=== PATIENT | female | born 1945 | race Caucasian/White ===

== ENCOUNTER 2017-09-02 23:11 | Emergency (ER) | payer MEDICARE, OTHER ==
[~2017-09-02] VITALS: Ht 175.3 cm; Wt 69.9 kg
[2017-09-02 23:50] LABS: Basophils # (auto) 0.1 uL; Eosinophils # (auto) 0.4 uL; Eosinophils % (auto) 6.9 % (0.0-7.0); Hemoglobin 14.3 g/dL (12.2-16.2); Lymphocytes # (auto) 1.5 uL; Lymphocytes % (auto) 24.5 % (10.0-50.0); Mean Corpuscular Hemoglobin 31.1 pg (28.0-32.0); Mean Corpuscular Hgb Conc. 33.2 g/dL (32.0-36.0); Mean Corpuscular Volume 93.5 fL (80.0-100.0); Monocytes # (auto) 0.4 uL; Monocytes % (auto) 6.2 % (0.0-12.0); Neutrophils # (auto) 3.7 uL; Neutrophils % (auto) 60.4 % (37.0-80.0); Nucleated Red Blood Cells % 0.1 %; Platelet Count (auto) 243 10^3/uL (140-450); Red Cell Distribution Width 13.7 % (11.8-14.3); White Blood Cell 6.2 10^3/uL (4.4-10.8)
[2017-09-03 00:08] LABS: Alanine Aminotransferase 28 U/L (13-56); Albumin 3.9 g/dL (3.4-5.0); Anion Gap 5 (5-15); Aspartate Aminotransferase 24 U/L (15-37); BUN/Creatinine Ratio 14.5; Blood Urea Nitrogen 11 mg/dL (7-18); Calcium 8.4 mg/dL (8.5-10.1); Carbon Dioxide 30 mmol/L (21-32); Chloride 105 mmol/L (98-107); GFR African American 96 mL/min; GFR Non-African American 79 mL/min; Glucose 93 mg/dL (74-106); Magnesium 2.6 mg/dL (1.6-2.6); Potassium 3.6 mmol/L (3.5-5.1); Sodium 140 mmol/L (136-145)
[2017-09-03 00:13] LABS: Alkaline Phosphatase 91 U/L (45-117); Bilirubin, Total 0.4 mg/dL (0.2-1.0); Total Protein 7.4 g/dL (6.4-8.2)
[2017-09-03 03:50] VITALS: BP 164/82
[2017-09-03] MEDS ORDERED: cefTRIAXone 1GM/10ml IVPUSH 10 ML IV ONE (04:00)
[2017-09-03] MEDS ORDERED: methylPREDNISolone SOD SUCC 125 MG/2 ML VL IV ONE (04:00)
[2017-09-03] MEDS ORDERED: diphenhdrAMINE HCL 25 MG CAP PO ONE (04:00)
== END 2017-09-03 05:46 | disposition home or self-care (01) ==
LOC: ER 23:11
DX: T78.40XA Allergy, unspecified, initial encounter (principal); T78.3XXA Angioneurotic edema, initial encounter; I10 Essential (primary) hypertension; E07.89 Other specified disorders of thyroid
CPT/HCPCS: 36415; 71045; 80053; 83735; 84484; 85025; 93005; 94761; 96374; 96375; 99285; J2930

== ENCOUNTER 2022-02-26 10:15 | Inpatient (IN) | payer MEDICARE, OTHER ==
[~2022-02-26] VITALS: Ht 175.3 cm; Wt 59.0 kg
[2022-02-26] MEDS ORDERED: SODIUM CHLORIDE 0.9% 1,000 ML IV ONE (10:30)
[2022-02-26 11:56] LABS: Basophils # (auto) 0 10 ^3/uL (0-0.2); Basophils % (auto) 0.2 % (0.0-2.0); Eosinophils # (auto) 0 10 ^3/uL (0-0.8); Eosinophils % (auto) 0.3 % (0.0-7.0); Hematocrit 36.8 % (36.0-46.0); Lymphocytes # (auto) 1.1 10 ^3/uL (0.4-5.4); Lymphocytes % (auto) 9.9 % (10.0-50.0); Mean Corpuscular Hemoglobin 29.5 pg (28.0-32.0); Mean Corpuscular Hgb Conc. 32.6 g/dL (32.0-36.0); Mean Corpuscular Volume 90.5 fL (80.0-100.0); Monocytes # (auto) 0.2 10 ^3/uL (0-1.3); Monocytes % (auto) 2.1 % (0.0-12.0); Neutrophils # (auto) 9.9 10 ^3/uL (1.6-8.6); Neutrophils % (auto) 87.5 % (37.0-80.0); Red Blood Cells 4.06 10^6/uL (4.0-5.20); Red Cell Distribution Width 13.3 % (11.8-14.3); White Blood Cell 11.3 10^3/uL (4.4-10.8)
[2022-02-26 12:18] LABS: Albumin 3.6 g/dL (3.4-5.0); Calcium 9.1 mg/dL (8.5-10.1); Potassium 3.9 mmol/L (3.5-5.1)
[2022-02-26 12:23] LABS: BUN/Creatinine Ratio 21.1; Bilirubin, Total 0.4 mg/dL (0.2-1.0); Total Protein 7.3 g/dL (6.4-8.2)
[2022-02-26] MEDS ORDERED: MORPHINE SULFATE INJ 2 MG/ml SYRG IV PRN (13:30)
[2022-02-26] MEDS ORDERED: NITROGLYCERIN 0.4 MG SL TAB SL PRN (13:30)
[2022-02-26] MEDS ORDERED: SODIUM CHLORIDE 0.9% 1,000 ML IV SCH ×2 (13:45→21:00)
[2022-02-26 14:05] LABS: Cholesterol 180 mg/dL (< 200); HDL Cholesterol 97 mg/dL (40-59); LDL Cholesterol 73 mg/dL (< 100); Triglycerides 113 mg/dL (< 150)
[2022-02-26 15:12] LABS: Urine Bacteria FEW /hpf (None Seen); Urine Blood 3+ /uL (Negative); Urine Specific Gravity 1.009 (1.001-1.035); Urine WBC 2 /hpf (0 - 5)
[2022-02-26 15:25] LABS: Amphetamine Screen, Urine NEGATIVE (NEGATIVE); Barbiturate Scree,Urine NEGATIVE (NEGATIVE); Benzodiazephine Screen, Urine NEGATIVE (NEGATIVE); Cannabinoid Screen, Urine NEGATIVE (NEGATIVE); Cocaine Screen, Urine NEGATIVE (NEGATIVE); Opiate Scree,Urine NEGATIVE (NEGATIVE); Phencyclidine Screen, Urine NEGATIVE (NEGATIVE)
[2022-02-26 21:30] LABS: Hepatitis C Antibody Negative (Negative)
[2022-02-26] MEDS ORDERED: LORazepam 2MG/ML-1ML VIAL IV PRN (21:45)
[2022-02-26] MEDS ORDERED: MIDAZOLAM HCL 2MG/2ML 2ml VIAL (1mg/ml) IV PRN (21:45)
[2022-02-26 22:00] VITALS: BP 178/78
[2022-02-26 22:05] VITALS: BP 155/72
[2022-02-26] MEDS ORDERED: PRED10TA PO (22:16)
[2022-02-26] MEDS ORDERED: LEVO75TA6 PO (22:16)
[2022-02-26] MEDS ORDERED: NIFE20CA (22:16)
[2022-02-26] MEDS ORDERED: DOXY100T51 (22:16)
[2022-02-26] MEDS ORDERED: SIMV-8 PO (22:16)
[2022-02-27 05:00] VITALS: BP 182/78
[2022-02-27 06:43] LABS: Basophils # (auto) 0 10 ^3/uL (0-0.2); Basophils % (auto) 0.2 % (0.0-2.0); Eosinophils # (auto) 0.1 10 ^3/uL (0-0.8); Eosinophils % (auto) 0.6 % (0.0-7.0); Hematocrit 39.2 % (36.0-46.0); Hemoglobin 12.6 g/dL (12.2-16.2); Lymphocytes # (auto) 2.8 10 ^3/uL (0.4-5.4); Mean Corpuscular Hemoglobin 29.3 pg (28.0-32.0); Mean Corpuscular Hgb Conc. 32.1 g/dL (32.0-36.0); Mean Corpuscular Volume 91.2 fL (80.0-100.0); Monocytes # (auto) 0.8 10 ^3/uL (0-1.3); Neutrophils # (auto) 6.4 10 ^3/uL (1.6-8.6); Neutrophils % (auto) 63.2 % (37.0-80.0); Red Cell Distribution Width 13.1 % (11.8-14.3); White Blood Cell 10.1 10^3/uL (4.4-10.8)
[2022-02-27 07:05] LABS: Potassium 3.8 mmol/L (3.5-5.1)
[2022-02-27 07:13] LABS: Albumin 3.2 g/dL (3.4-5.0); BUN/Creatinine Ratio 17.9; Bilirubin, Total 0.4 mg/dL (0.2-1.0); Calcium 8.7 mg/dL (8.5-10.1); Total Protein 6.8 g/dL (6.4-8.2)
[2022-02-27] MEDS ORDERED: LEVOTHYROXINE SODIUM 25 MCG TAB PO ONE (08:15)
[2022-02-27] MEDS: hydrALAZINE HCL 20 MG/ML VL IV PRN ×2 (08:42→18:09)
[2022-02-27 09:00] VITALS: BP 191/81
[2022-02-27] MEDS: ASPirin 81 mg TAB PO SCH (09:39)
[2022-02-27] MEDS ORDERED: NIFEdipine ER 30 MG TAB PO SCH (10:00)
[2022-02-27] MEDS ORDERED: LISINOPRIL 10 MG TAB PO SCH (10:00)
[2022-02-27] MEDS ORDERED: ENOXAPARIN SOD 30 MG/0.3 ML SYRINGE SC SCH (10:00)
[2022-02-27] MEDS ORDERED: NIFEdipine ER 30 MG TAB PO ONE (11:30)
[2022-02-27 12:55] VITALS: BP 168/64
[2022-02-27 14:30] VITALS: BP_SYST 156; BP_SYST 159; BP_SYST 160; BP_DIAS 62; BP_DIAS 67
[2022-02-27 16:39] VITALS: BP 158/60
[2022-02-27 22:00] VITALS: BP 143/65
[2022-02-27] MEDS ORDERED: ATORVASTATIN 20 MG TAB PO SCH (22:00)
[2022-02-28 00:10] LABS: Protein, Urine 73.8 mg/dL (0.0-11.9)
[2022-02-28 05:00] VITALS: BP 147/60
[2022-02-28] MEDS ORDERED: LEVOTHYROXINE SODIUM 25 MCG TAB PO SCH ×2 (07:00)
[2022-02-28 07:14] LABS: BUN/Creatinine Ratio 22.8; Calcium 8.4 mg/dL (8.5-10.1); Potassium 3.8 mmol/L (3.5-5.1)
[2022-02-28 09:00] VITALS: BP 155/58
[2022-02-28] MEDS: ASPirin 81 mg TAB PO SCH (09:52)
[2022-02-28] MEDS ORDERED: predniSONE 20 MG TAB PO SCH (10:00)
[2022-02-28] MEDS ORDERED: NIFEdipine ER 30 MG TAB PO SCH (10:00)
[2022-02-28 10:27] VITALS: BP 155/58
== END 2022-02-28 11:39 | disposition home or self-care (01) | DRG 73 ==
LOC: EDBD 10:15 → ER 10:29 → TELE 13:18 → TELE-CENTR 21:30
PROVIDERS: ADMIT Registered Nurse; ATTEND Internal Medicine
DX: G90.8 Other disorders of autonomic nervous system (principal); N17.0 Acute kidney failure with tubular necrosis; I13.0 Hypertensive heart and chronic kidney disease with heart failure and stage 1 through stage 4 chronic kidney disease, or unspecified chronic kidney disease; N39.0 Urinary tract infection, site not specified; E03.9 Hypothyroidism, unspecified; E78.5 Hyperlipidemia, unspecified; F17.200 Nicotine dependence, unspecified, uncomplicated; Z20.822 Contact with and (suspected) exposure to COVID-19; M19.90 Unspecified osteoarthritis, unspecified site; R73.03 Prediabetes; I50.9 Heart failure, unspecified; N18.9 Chronic kidney disease, unspecified; I49.8 Other specified cardiac arrhythmias; Z88.8 Allergy status to other drugs, medicaments and biological substances; Z88.2 Allergy status to sulfonamides
CPT/HCPCS: 36415; 70450; 70551; 71045; 76775; 80048; 80053; 80061; 80307; 81001; 82306; 82570; 83036; 83970; 84100; 84156; 84300; 84443; 84484; 85025; 86803; 87340; 93005; 93306; 93886; 96360; 96361; G0378

== ENCOUNTER 2023-11-18 16:00 | Inpatient (IN) | payer MEDICARE, OTHER ==
[~2023-11-18] VITALS: Ht 165.1 cm; Wt 80.5 kg
[~2023-11-18 16:00] MED LIST: AZIT500T66 PO; CHOL20007 PO; LEVO50TA7 PO; LOS25T PO; NIFE1TAB30 PO; SIMV20TA20 PO; ZINC220C10 PO
[2023-11-18 16:49] LABS: Basophils # (auto) 0 10 ^3/uL (0-0.2); Basophils % (auto) 0.2 % (0.0-2.0); Eosinophils # (auto) 0 10 ^3/uL (0-0.8); Eosinophils % (auto) 0.9 % (0.0-7.0); Hematocrit 36.8 % (36.0-46.0); Hemoglobin 12.3 g/dL (12.2-16.2); Lymphocytes # (auto) 0.8 10 ^3/uL (0.4-5.4); Lymphocytes % (auto) 21.9 % (10.0-50.0); Mean Corpuscular Hemoglobin 30.5 pg (28.0-32.0); Mean Corpuscular Hgb Conc. 33.4 g/dL (32.0-36.0); Mean Corpuscular Volume 91.4 fL (80.0-100.0); Monocytes # (auto) 0.4 10 ^3/uL (0-1.3); Monocytes % (auto) 11.9 % (0.0-12.0); Neutrophils # (auto) 2.3 10 ^3/uL (1.6-8.6); Neutrophils % (auto) 65.1 % (37.0-80.0); Nucleated Red Blood Cells % 0.1 %; Red Blood Cells 4.02 10^6/uL (4.0-5.20); Red Cell Distribution Width 14.2 % (11.8-14.3); White Blood Cell 3.5 10^3/uL (4.4-10.8)
[2023-11-18 17:03] LABS: INR 0.97 (0.9-1.15); Prothrombin Time 10.3 sec (9.3-11.8)
[2023-11-18 17:34] LABS: Alanine Aminotransferase 31 U/L (7-40); Albumin 3.7 g/dL (3.2-4.8); Alkaline Phosphatase 71 U/L (46-116); Anion Gap 7 (5-15); Aspartate Aminotransferase 65 U/L (13-40); BUN/Creatinine Ratio 15.1 (10.0-20.0); Blood Urea Nitrogen 23 mg/dL (9-23); Carbon Dioxide 22 mmol/L (20-30); Chloride 106 mmol/L (98-107); Glucose 139 mg/dL (74-106); Potassium 4.3 mmol/L (3.5-5.1); Sodium 135 mmol/L (136-145)
[2023-11-18 17:35] LABS: Bilirubin, Total < 0.2 mg/dL (0.2-1.0); Total Protein 6.2 g/dL (5.7-8.2)
[2023-11-18 17:37] VITALS: PULSE 58; RESP 14; O2SAT 95
[2023-11-18] MEDS ORDERED: SODIUM CHLORIDE 0.9% 1,000 ML IV ONE (20:00)
[2023-11-18] MEDS ORDERED: ONDANSETRON HCL 4 MG/2 ML VIAL IV PRN (20:30)
[2023-11-18] MEDS ORDERED: ACETAMINOPHEN 325 MG TAB PO PRN (20:30)
[2023-11-18] MEDS ORDERED: MORPHINE SULFATE INJ 2 MG/ml SYRG IV PRN ×2 (20:30)
[2023-11-18] MEDS ORDERED: NITROGLYCERIN 0.4 MG SL TAB SL PRN (20:30)
[2023-11-18] MEDS ORDERED: HYDROcodone-ACET 5/325MG TAB PO PRN (20:30)
[2023-11-18] MEDS ORDERED: DOCUSATE SOD 100 MG CAP PO PRN (20:30)
[2023-11-18] MEDS ORDERED: LORazepam 2MG/ML-1ML VIAL IV PRN (21:15)
[2023-11-18] MEDS: SODIUM CHLORIDE 0.9% 500 ML IV ONE (21:26)
[2023-11-18] MEDS ORDERED: IPRATROPIUM BROM 0.5 MG/2.5ML INH SOL NEB PRN (21:30)
[2023-11-18] MEDS ORDERED: ALBUTEROL SULF 2.5 MG/0.5ML(0.5%) NEB SOLN NEB PRN (21:30)
[2023-11-18 21:36] VITALS: BP 142/56; PULSE 54; RESP 15; TEMP 98.7; O2SAT 95
[2023-11-19] VITALS (11 sets, daily range): BP systolic 111–159; BP diastolic 49–61; PULSE 54–96; RESP 17–20; TEMP 97.4–99; O2SAT 93–100
[2023-11-19] LABS: COVID19 ANTIGEN SOFIA FIA POSITIVE (NEGATIVE)
[2023-11-19] MEDS: LEVOTHYROXINE SODIUM 50 MCG TAB PO SCH (06:33)
[2023-11-19] MEDS: hydrALAZINE HCL 20 MG/ML VL IV PRN (06:45)
[2023-11-19 07:57] LABS: Alanine Aminotransferase 25 U/L (7-40); Albumin 3.3 g/dL (3.2-4.8); Alkaline Phosphatase 65 U/L (46-116); Anion Gap 6 (5-15); Aspartate Aminotransferase 44 U/L (13-40); BUN/Creatinine Ratio 20.3 (10.0-20.0); Blood Urea Nitrogen 25 mg/dL (9-23); Calcium 8.8 mg/dL (8.5-10.1); Carbon Dioxide 24 mmol/L (20-30); Chloride 109 mmol/L (98-107); Glucose 97 mg/dL (74-106); Potassium 4.1 mmol/L (3.5-5.1); Sodium 139 mmol/L (136-145)
[2023-11-19 07:58] LABS: Bilirubin, Total 0.2 mg/dL (0.2-1.0); Total Protein 5.5 g/dL (5.7-8.2)
[2023-11-19 08:00] LABS: Basophils # (auto) 0 10 ^3/uL (0-0.2); Basophils % (auto) 0.2 % (0.0-2.0); Eosinophils # (auto) 0 10 ^3/uL (0-0.8); Eosinophils % (auto) 0.9 % (0.0-7.0); Hematocrit 31.6 % (36.0-46.0); Hemoglobin 10.4 g/dL (12.2-16.2); Lymphocytes % (auto) 32.1 % (10.0-50.0); Monocytes # (auto) 0.5 10 ^3/uL (0-1.3); Monocytes % (auto) 17.2 % (0.0-12.0); Neutrophils # (auto) 1.5 10 ^3/uL (1.6-8.6); Neutrophils % (auto) 49.6 % (37.0-80.0); Nucleated Red Blood Cells % 0.3 %; Red Blood Cells 3.47 10^6/uL (4.0-5.20); Red Cell Distribution Width 14.3 % (11.8-14.3); White Blood Cell 3.1 10^3/uL (4.4-10.8)
[2023-11-19] MEDS: ENOXAPARIN SOD 40 MG/0.4 ML SYRINGE SC SCH (09:25)
[2023-11-19] MEDS: NIFEdipine ER 30 MG TAB PO SCH (09:26)
[2023-11-19] MEDS: ZINC SULFATE 220mg CAP or TAB PO SCH (09:26)
[2023-11-19] MEDS: PANTOPRAZOLE 40 MG TAB PO SCH (09:26)
[2023-11-19] MEDS: ASPirin-EC 81 mg tab PO SCH (09:26)
[2023-11-19] MEDS: AZITHROMYCIN 250 MG TAB PO SCH (09:26)
[2023-11-19] MEDS: PRAVASTATIN SODIUM 20 MG TAB PO SCH (09:27)
[2023-11-19 11:18] LABS: Rapid Influenza A Negative (Negative); Rapid Influenza B Negative (Negative)
[2023-11-19 11:55] LABS: Phosphorus 2.8 mg/dL (2.4-5.1)
[2023-11-19 11:58] LABS: INR 1.01 (0.9-1.15); Partial Thromboplastin Time 30.5 SEC (24.5-34.5); Prothrombin Time 10.7 sec (9.3-11.8)
[2023-11-19 15:26] LABS: Urine Bacteria None Seen /hpf (None Seen)
[2023-11-19 15:48] LABS: Urine Blood Negative /uL (Negative); Urine Clarity Clear (Clear); Urine Color Light-Yellow (Yellow); Urine Protein, UAD 1+ (Negative); Urine Specific Gravity 1.009 (1.001-1.035); Urine Urobilinogen Normal (Negative); Urine WBC 1 /hpf (0 - 5); Urine pH 6.5 (5.0-9.0)
[2023-11-19 15:54] LABS: Amphetamine Screen, Urine Neg (NEGATIVE); Barbiturate Scree,Urine Neg (NEGATIVE); Benzodiazephine Screen, Urine Neg (NEGATIVE); Cocaine Screen, Urine Neg (NEGATIVE); Opiate Scree,Urine Neg (NEGATIVE)
[2023-11-19 15:55] LABS: Cannabinoid Screen, Urine Neg (NEGATIVE); Phencyclidine Screen, Urine Neg (NEGATIVE)
[2023-11-19] MEDS: ENOXAPARIN SOD 60 MG/0.6 ML SYRINGE SC SCH (21:57)
[2023-11-20] VITALS (11 sets, daily range): BP systolic 0–187; BP diastolic 45–62; PULSE 54–94; RESP 16–20; TEMP 97.8–99.2; O2SAT 95–100
[2023-11-20] MEDS ORDERED: ALBUTEROL SULF HFA 90MCG INH 200DOSE IN PRN (04:00)
[2023-11-20 07:22] LABS: Basophils # (auto) 0 10 ^3/uL (0-0.2); Basophils % (auto) 0.2 % (0.0-2.0); Eosinophils # (auto) 0.1 10 ^3/uL (0-0.8); Eosinophils % (auto) 2.2 % (0.0-7.0); Hematocrit 31.4 % (36.0-46.0); Hemoglobin 10.2 g/dL (12.2-16.2); Lymphocytes # (auto) 1.1 10 ^3/uL (0.4-5.4); Lymphocytes % (auto) 27.7 % (10.0-50.0); Mean Corpuscular Hemoglobin 30.3 pg (28.0-32.0); Mean Corpuscular Hgb Conc. 32.5 g/dL (32.0-36.0); Mean Corpuscular Volume 93.2 fL (80.0-100.0); Monocytes # (auto) 0.7 10 ^3/uL (0-1.3); Monocytes % (auto) 17.8 % (0.0-12.0); Neutrophils % (auto) 52.1 % (37.0-80.0); Nucleated Red Blood Cells % 0.2 %; Red Blood Cells 3.37 10^6/uL (4.0-5.20); Red Cell Distribution Width 14.7 % (11.8-14.3); White Blood Cell 3.8 10^3/uL (4.4-10.8)
[2023-11-20 07:32] LABS: Chloride 106 mmol/L (98-107); Potassium 4.5 mmol/L (3.5-5.1); Sodium 137 mmol/L (136-145)
[2023-11-20 07:33] LABS: Anion Gap 7 (5-15); Calcium 8.6 mg/dL (8.5-10.1); Carbon Dioxide 24 mmol/L (20-30)
[2023-11-20 07:38] LABS: BUN/Creatinine Ratio 17.6 (10.0-20.0); Blood Urea Nitrogen 24 mg/dL (9-23); Glucose 94 mg/dL (74-106)
[2023-11-21] VITALS (11 sets, daily range): BP systolic 113–140; BP diastolic 49–88; PULSE 55–65; RESP 14–20; TEMP 97.8–98.8; O2SAT 93–97
[2023-11-21 08:23] LABS: Hematocrit 32.9 % (36.0-46.0); Hemoglobin 10.9 g/dL (12.2-16.2); Mean Corpuscular Hemoglobin 30.2 pg (28.0-32.0); Mean Corpuscular Hgb Conc. 33.2 g/dL (32.0-36.0); Mean Corpuscular Volume 91.2 fL (80.0-100.0); Red Blood Cells 3.61 10^6/uL (4.0-5.20); White Blood Cell 3.2 10^3/uL (4.4-10.8)
[2023-11-21 08:28] LABS: Basophils % (manual) 0 (0.0-2.0); Blast Cells 0; Metamyelocytes % 0; Myelocytes % 0; Promyelocytes % 0; Reactive Lymphocytes 0
[2023-11-21 08:33] LABS: Chloride 106 mmol/L (98-107); Potassium 4.4 mmol/L (3.5-5.1); Sodium 138 mmol/L (136-145)
[2023-11-21 08:34] LABS: Anion Gap 6 (5-15); Calcium 8.9 mg/dL (8.5-10.1); Carbon Dioxide 26 mmol/L (20-30)
[2023-11-21 08:39] LABS: Blood Urea Nitrogen 26 mg/dL (9-23); Glucose 101 mg/dL (74-106)
[2023-11-21 09:12] LABS: Band Neutrophils % (manual) 1; Eosinophils % (manual) 4 (0-7); Lymphocytes % (manual) 34 (10.0-50.0); Monocytes % (manual) 14 (0-12)
[2023-11-21 09:13] LABS: Platelet Estimate Adequate
== END 2023-11-21 16:24 | disposition home or self-care (01) | DRG 314 ==
LOC: ER 16:00 → EDBD 16:00 → TELE 20:26 → TELE-CENTR 11-19 02:21 → TELE-EAST 11-19 02:44
PROVIDERS: ADMIT Internal Medicine; ATTEND Psychiatry & Neurology Neurology
PROC: 4B02XSZ Measurement of Cardiac Pacemaker, External Approach (ICD-10-PCS; principal; 2023-11-20)
DX: T82.199A Other mechanical complication of unspecified cardiac device, initial encounter (principal); J12.82 Pneumonia due to coronavirus disease 2019; U07.1 COVID-19; N17.0 Acute kidney failure with tubular necrosis; E03.9 Hypothyroidism, unspecified; I11.0 Hypertensive heart disease with heart failure; I50.9 Heart failure, unspecified; E78.5 Hyperlipidemia, unspecified; F17.200 Nicotine dependence, unspecified, uncomplicated; J32.9 Chronic sinusitis, unspecified; Z88.2 Allergy status to sulfonamides; Z88.8 Allergy status to other drugs, medicaments and biological substances; Z79.899 Other long term (current) drug therapy; Z95.0 Presence of cardiac pacemaker; Y83.8 Other surgical procedures as the cause of abnormal reaction of the patient, or of later complication, without mention of misadventure at the time of the procedure; Z80.3 Family history of malignant neoplasm of breast; Z87.01 Personal history of pneumonia (recurrent); Z86.16 Personal history of COVID-19; Y92.89 Other specified places as the place of occurrence of the external cause
CPT/HCPCS: 36415; 70450; 71045; 80048; 80053; 80061; 80307; 81001; 82140; 82306; 82607; 83036; 83605; 83690; 83735; 83880; 84100; 84443; 84484; 85007; 85025; 85027; 85610; 85730; 87081; 87426; 87804; 93970; 95819; 97116; 97530; G0378

== ENCOUNTER 2024-04-14 18:58 | Inpatient (IN) | payer MEDICARE, OTHER ==
[~2024-04-14] VITALS: Ht 172.7 cm; Wt 57.4 kg
[~2024-04-14 18:58] MED LIST changes: -AZIT500T66 PO
[2024-04-14 20:23] LABS: Basophils # (auto) 0 10 ^3/uL (0-0.2); Basophils % (auto) 0.5 % (0.0-2.0); Eosinophils # (auto) 0.5 10 ^3/uL (0-0.8); Eosinophils % (auto) 6.6 % (0.0-7.0); Hematocrit 35.5 % (36.0-46.0); Lymphocytes # (auto) 1.6 10 ^3/uL (0.4-5.4); Lymphocytes % (auto) 22.6 % (10.0-50.0); Mean Corpuscular Hemoglobin 31.7 pg (28.0-32.0); Mean Corpuscular Hgb Conc. 33.8 g/dL (32.0-36.0); Mean Corpuscular Volume 93.9 fL (80.0-100.0); Monocytes # (auto) 0.6 10 ^3/uL (0-1.3); Monocytes % (auto) 8.1 % (0.0-12.0); Neutrophils # (auto) 4.4 10 ^3/uL (1.6-8.6); Neutrophils % (auto) 62.2 % (37.0-80.0); Nucleated Red Blood Cells % 0.2 %; Platelet Count (auto) 210 10^3/uL (140-450); Red Blood Cells 3.78 10^6/uL (4.0-5.20); Red Cell Distribution Width 13.1 % (11.8-14.3); White Blood Cell 7.1 10^3/uL (4.4-10.8)
[2024-04-14 20:42] LABS: Alanine Aminotransferase 16 U/L (7-40); Albumin 4.3 g/dL (3.2-4.8); Alkaline Phosphatase 107 U/L (46-116); Anion Gap 7 (5-15); Aspartate Aminotransferase 14 U/L (13-40); BUN/Creatinine Ratio 18.2 (10.0-20.0); Bilirubin, Total 0.4 mg/dL (0.2-1.0); Blood Urea Nitrogen 34 mg/dL (9-23); Calcium 9.2 mg/dL (8.7-10.4); Carbon Dioxide 26 mmol/L (20-31); Chloride 108 mmol/L (98-107); Glucose 107 mg/dL (74-106); INR 0.97 (0.9-1.15); Magnesium 2.5 mg/dL (1.6-2.6); Partial Thromboplastin Time 25.9 SEC (24.5-34.5); Potassium 4.1 mmol/L (3.5-5.1); Prothrombin Time 10.3 sec (9.3-11.8); Sodium 141 mmol/L (136-145)
[2024-04-14 20:43] LABS: Total Protein 6.8 g/dL (5.7-8.2)
[2024-04-14] MEDS: NIFEdipine ER 30 MG TAB PO ONE (22:30)
[2024-04-14] MEDS: ASPirin 81 mg TAB PO ONE (22:30)
[2024-04-14] MEDS ORDERED: ATORVASTATIN 20 MG TAB PO ONE (22:30)
[2024-04-14] MEDS ORDERED: ACETAMINOPHEN 500 MG TAB PO PRN (22:30)
[2024-04-14] MEDS ORDERED: MORPHINE SULFATE INJ 2 MG/ml SYRG IV PRN (22:30)
[2024-04-14 23:30] VITALS: PULSE 68; RESP 18; O2SAT 95
[2024-04-14] MEDS: ATORVASTATIN 20 MG TAB PO ONE (23:46)
[2024-04-14] MEDS: LOSARTAN POTASSIUM 25 MG TAB PO ONE (23:47)
[2024-04-15 00:17] VITALS: RESP 18; O2SAT 95
[2024-04-15 04:48] LABS: Basophils # (auto) 0.1 10 ^3/uL (0-0.2); Eosinophils # (auto) 0.4 10 ^3/uL (0-0.8); Hematocrit 31.7 % (36.0-46.0); Lymphocytes # (auto) 1.7 10 ^3/uL (0.4-5.4); Lymphocytes % (auto) 25.6 % (10.0-50.0); Mean Corpuscular Hemoglobin 32.7 pg (28.0-32.0); Mean Corpuscular Hgb Conc. 34.8 g/dL (32.0-36.0); Monocytes # (auto) 0.5 10 ^3/uL (0-1.3); Neutrophils # (auto) 3.9 10 ^3/uL (1.6-8.6); Neutrophils % (auto) 59.4 % (37.0-80.0); Nucleated Red Blood Cells % 0.1 %; Platelet Count (auto) 195 10^3/uL (140-450); Red Blood Cells 3.37 10^6/uL (4.0-5.20); Red Cell Distribution Width 13.3 % (11.8-14.3); White Blood Cell 6.6 10^3/uL (4.4-10.8)
[2024-04-15 04:59] LABS: Chloride 109 mmol/L (98-107); Potassium 3.9 mmol/L (3.5-5.1); Sodium 141 mmol/L (136-145)
[2024-04-15 05:00] LABS: Anion Gap 6 (5-15); Calcium 9.4 mg/dL (8.7-10.4); Carbon Dioxide 26 mmol/L (20-31)
[2024-04-15 05:05] LABS: Blood Urea Nitrogen 26 mg/dL (9-23); Glucose 100 mg/dL (74-106)
[2024-04-15] MEDS ORDERED: LEVOTHYROXINE SODIUM 25 MCG TAB PO SCH (06:00)
[2024-04-15 09:00] LABS: Free T3 2.11 pg/mL (2.3-4.2)
[2024-04-15 09:01] LABS: Free T4 (Free Thyroxine) 1.08 ng/dL (0.89-1.76)
[2024-04-15] MEDS: NIFEdipine ER 30 MG TAB PO SCH ×2 (09:40→14:00)
[2024-04-15] MEDS: ASPirin 81 mg TAB PO SCH (09:41)
[2024-04-15] MEDS: LEVOTHYROXINE SODIUM 50 MCG TAB PO SCH (09:41)
[2024-04-15] MEDS: ENOXAPARIN SOD 30 MG/0.3 ML SYRINGE SC SCH (09:42)
[2024-04-15] MEDS ORDERED: NIFEdipine ER 30 MG TAB PO SCH (10:00)
[2024-04-15] MEDS ORDERED: NIFE1TAB31 PO (16:56)
[2024-04-15 17:00] VITALS: BP 159/66; PULSE 70; RESP 20; TEMP 97.8; O2SAT 98
[2024-04-15 18:40] VITALS: BP 156/63
[2024-04-15] MEDS: hydrALAZINE HCL 20 MG/ML VL IV PRN (18:51)
[2024-04-15 20:00] VITALS: PULSE 69; PULSE 79; RESP 16; O2SAT 97
[2024-04-15] MEDS ORDERED: PATIENTS OWN MEDICATION PO SCH (20:00)
[2024-04-15] MEDS ORDERED: LOSARTAN POTASSIUM 25 MG TAB PO SCH (20:00)
[2024-04-15] MEDS ORDERED: ATORVASTATIN 20 MG TAB PO SCH ×2 (20:00→22:00)
[2024-04-15 21:00] VITALS: BP_SYST 111; BP_SYST 121; BP_SYST 126; BP_DIAS 49; BP_DIAS 52; PULSE 69; PULSE 77; RESP 16; TEMP 98.2; O2SAT 97; O2SAT 98; O2SAT 99
[2024-04-15 21:26] LABS: COVID19 ANTIGEN SOFIA FIA NEGATIVE (NEGATIVE)
[2024-04-15] MEDS: ATORVASTATIN 20 MG TAB PO SCH (21:41)
[2024-04-15] MEDS: CYANOCOBALAMIN (B-12) 1000 MCG/1 ML VIAL IM ONE (21:41)
[2024-04-16 00:38] LABS: Urine Bacteria MANY /hpf (None Seen); Urine Blood 1+ /uL (Negative); Urine Clarity Turbid (Clear); Urine Color Light-Yellow (Yellow); Urine Protein, UAD 1+ (Negative); Urine Specific Gravity 1.008 (1.001-1.035); Urine Urobilinogen Normal (Negative); Urine WBC 26 /hpf (0 - 5); Urine pH 5.5 (5.0-9.0)
[2024-04-16 01:00] VITALS: BP 132/60; PULSE 66; RESP 16; TEMP 99.1; O2SAT 99
[2024-04-16 05:00] VITALS: BP 122/56; PULSE 59; RESP 18; TEMP 98.7; O2SAT 95
[2024-04-16 06:37] LABS: Basophils # (auto) 0 10 ^3/uL (0-0.2); Basophils % (auto) 0.4 % (0.0-2.0); Eosinophils # (auto) 0.4 10 ^3/uL (0-0.8); Eosinophils % (auto) 7.8 % (0.0-7.0); Hematocrit 32.5 % (36.0-46.0); Lymphocytes # (auto) 1.1 10 ^3/uL (0.4-5.4); Lymphocytes % (auto) 20.5 % (10.0-50.0); Mean Corpuscular Hemoglobin 31.8 pg (28.0-32.0); Mean Corpuscular Volume 93.7 fL (80.0-100.0); Monocytes # (auto) 0.5 10 ^3/uL (0-1.3); Monocytes % (auto) 8.9 % (0.0-12.0); Neutrophils # (auto) 3.3 10 ^3/uL (1.6-8.6); Neutrophils % (auto) 62.4 % (37.0-80.0); Platelet Count (auto) 197 10^3/uL (140-450); Red Blood Cells 3.47 10^6/uL (4.0-5.20); Red Cell Distribution Width 13.2 % (11.8-14.3); White Blood Cell 5.2 10^3/uL (4.4-10.8)
[2024-04-16 06:53] LABS: Calcium 9.4 mg/dL (8.7-10.4); Chloride 108 mmol/L (98-107); Potassium 4.2 mmol/L (3.5-5.1); Sodium 140 mmol/L (136-145)
[2024-04-16 06:54] LABS: Anion Gap 8 (5-15); Carbon Dioxide 24 mmol/L (20-31)
[2024-04-16 06:59] LABS: Glucose 105 mg/dL (74-106)
[2024-04-16 07:00] LABS: BUN/Creatinine Ratio 23.4 (10.0-20.0); Blood Urea Nitrogen 33 mg/dL (9-23)
[2024-04-16 08:00] VITALS: PULSE 55; PULSE 64; RESP 16; O2SAT 97
[2024-04-16 09:00] VITALS: BP 159/63; PULSE 64; RESP 16; TEMP 97.8; O2SAT 98
[2024-04-16] MEDS: CYANOCOBALAMIN 500 MCG TAB PO SCH (09:00)
[2024-04-16] MEDS: cefTRIAXone 1GM/50ML D5W 50 ML IV SCH (09:01)
[2024-04-16] MEDS ORDERED: CEPH250C PO (10:27)
[2024-04-16] MEDS ORDERED: CEFD300C2 PO (10:27)
[2024-04-16 12:05] VITALS: BP 148/57; PULSE 64; RESP 17; TEMP 98.1; O2SAT 99
[2024-04-16 13:08] LABS: Amphetamine Screen, Urine Neg (NEGATIVE)
[2024-04-16 13:09] LABS: Barbiturate Scree,Urine Neg (NEGATIVE); Benzodiazephine Screen, Urine Neg (NEGATIVE); Cannabinoid Screen, Urine Neg (NEGATIVE); Cocaine Screen, Urine Neg (NEGATIVE); Opiate Scree,Urine Neg (NEGATIVE); Phencyclidine Screen, Urine Neg (NEGATIVE)
== END 2024-04-16 13:25 | disposition home or self-care (01) | DRG 74 ==
LOC: ER 18:58 → TELE 22:34 → TELE-EAST 04-15 16:00
PROVIDERS: ADMIT Internal Medicine; ATTEND Internal Medicine
PROC: 4B02XSZ Measurement of Cardiac Pacemaker, External Approach (ICD-10-PCS; principal; 2024-04-16)
DX: G90.89 Other disorders of autonomic nervous system (principal); N17.9 Acute kidney failure, unspecified; I13.0 Hypertensive heart and chronic kidney disease with heart failure and stage 1 through stage 4 chronic kidney disease, or unspecified chronic kidney disease; I50.32 Chronic diastolic (congestive) heart failure; N39.0 Urinary tract infection, site not specified; E86.0 Dehydration; E78.5 Hyperlipidemia, unspecified; N18.32 Chronic kidney disease, stage 3b; Z20.822 Contact with and (suspected) exposure to COVID-19; M25.552 Pain in left hip; M54.50 Low back pain, unspecified; E03.9 Hypothyroidism, unspecified; Z88.2 Allergy status to sulfonamides; Z88.8 Allergy status to other drugs, medicaments and biological substances; Z79.899 Other long term (current) drug therapy; Z95.0 Presence of cardiac pacemaker; Z87.440 Personal history of urinary (tract) infections; Z80.3 Family history of malignant neoplasm of breast
CPT/HCPCS: 36415; 70450; 71045; 72110; 80048; 80053; 80307; 81001; 82306; 82607; 83036; 83735; 83880; 84439; 84443; 84481; 84484; 85025; 85610; 85730; 87426; 93005; 93886; G0378